=== PATIENT | female | born 1960 | race Caucasian/White ===

== ENCOUNTER 2016-07-31 13:15 | Emergency (ER) | payer MEDICAID ==
[~2016-07-31] VITALS: Ht 160 cm; Wt 63.0 kg
[2016-07-31 13:16] VITALS: Ht 160 cm; Wt 63.0 kg
--- NOTE | 2016-07-31 14:47 | ERD ---
ER Documentation Chief Complaint Date/Time DATE: 07/31/16 TIME: 14:35 Chief Complaint headcahe and lump on lt side of neck HPI Sangeeta 56-year-old female presents to emergency department today with left- sided soreness, intermittent headaches. Patient does not have a headache at this time, states last headache was 2 weeks ago. Patient denies any injury or trauma to her neck. 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 Patient denies any numbness or tingling running down to her fingers. She denies any loss of function to her hands. She denies nausea, vomiting, fever, chills, or change in vision. Patient has not seen primary care physician for this complaint. Patient reports pain as chronic and intermittent for the last 4 weeks ROS All systems reviewed and are negative except as per history of present illness. Medications Home Meds Active Scripts Cyclobenzaprine Hcl* (Cyclobenzaprine Hcl*) 10 Mg Tablet, 10 MG PO TID, #15 TAB Prov:MANJINDER,MASTER 07/31/16 Naproxen* (Naprosyn*) 500 Mg Tablet, 500 MG PO BID Y for PAIN AND/OR INFLAMMATION, #30 TAB Prov:MANJINDER,MASTER 07/31/16 Physical Exam Vitals Vital Signs Date Time Temp Pulse Resp B/P Pulse Ox O2 Delivery O2 Flow Rate FiO2 07/31/16 13:16 98.0 90 18 139/81 99 Vitals stable, triage notes reviewed Physical Exam Const: No acute distress Head: Atraumatic no lesion, ecchymosis, or contusion Eyes: Normal Conjunctiva PERRLA, EOMI ENT: Normal External Ears, Nose and Mouth mucous membranes moist Neck: Full range of motion. Nontender over bony prominence of spine, palpable paraspinal spasm noted left cervical spine. Resp: Clear to auscultation bilaterally Cardio: Abd: Skin: Back: Ext: No cyanosis, or edema Neur: Awake and alert Psych: Normal Mood and Affect Procedures/MDM This sangeeta 56-year-old female presents with palpable paraspinal spasm. Pain radiates to head and trapezius with gentle massage. Patient has no loss of range of motion. Cervical mass or lesion is not suspected at this time. I feel patient can be treated by primary care physician with outpatient follow- up. Patient prescribed Naprosyn 1 tab p.o. twice daily 10 days, Flexeril 1 tab p.o. 3 times daily. Rest, ice, gentle massage to affected area. Patient to return to emergency room for imaging in 7-10 days if symptoms not improved with symptomatic treatment. I feel the patient is stable for discharge at this time. I have discussed results, examination findings, the treatment plan with the patient and family present prior to discharge. Indications for emergent reevaluation, side effects of medication were also discussed. All questions were answered. Patient verbalizes understanding and agrees with plan of care. Departure Diagnosis: Primary Impression: Cervical paraspinal muscle spasm Condition: Good Patient Instructions: Back And Neck Pain, General [facility] Additional Instructions: Thank you for for coming to [facility] for your care today. Please ask your nurse or provider if you have questions about your care today and do not leave until all your questions have been answered. Please use any medications given as directed and follow-up with your doctor (or the doctor you were referred to) in the next 2-3 days. If you do not have a primary care doctor you may follow up at the [facility] (listed below). You may also use motrin and tylenol as needed for fever and/or pain unless instructed otherwise by your provider or nurse. Indications for more urgent follow-up have been discussed, but you may return to the Emergency Department at ANY time for any worrisome or worsening symptoms. If you have abdominal pain, please know that no test or exam you received is perfect and you should follow up within 8 hours for continued pain. If you had any imaging studies today, such as an X-Ray or CT Scan, these studies will be reviewed later by a radiologist. You will be called if there are important findings that were not identified today, so make sure the contact information you provided at registration is correct. If you received any narcotic pain control medicine today, such as Vicodin, Morphine or Dilaudid, your coordination and judgment may be affected for a number of hours. Please do not drive or operate heavy machinery, and you may want someone to assist you at home. If you were given a prescription for narcotic medication, be aware that it is very addictive- use sparingly and only if necessary. MASTER DUNBAR Jul 31, 2016 14:45
[2016-07-31] MEDS ORDERED: NAPR-260 PO (14:48)
[2016-07-31] MEDS ORDERED: CYCL-319 PO (14:48)
== END 2016-07-31 14:49 | disposition home or self-care (01) ==
LOC: E/R 13:15
DX: M62.838 Other muscle spasm (principal)
CPT/HCPCS: 99283